=== PATIENT | male | born 1970 | race Caucasian/White ===

== ENCOUNTER → 2023-11-25 | Outpatient (CLI) | payer BC ==
--- NOTE | 2023-11-25 19:06 | CT ---
EXAMINATION TYPE: CT chest wo con DATE OF EXAM: 11/25/2023 COMPARISON: None HISTORY: asbestos exposure CT DLP: 952.6 mGycm, Automated exposure control for dose reduction was used. CONTRAST: None TECHNIQUE: Axial images were obtained at 1 mm thick sections at 10 mm intervals. This will limit po rtions of the examination which may not be visualized within the [id number]. Images were obtained in the prone and supine views. FINDINGS: Portion of the thyroid visualized is normal. There is an irregular 1.0 x 0.7 cm density within the posterior left apex. Workup for neoplasm is rec ommended. There is a 1.4 cm irregular density anterior right lung. Series 4 image 169. There is a 0.4 cm density within the posterior right lung base, Series 10 image 18. There is thickening along the right major fissure, example image series 4 image 115. This could be re lated to some atelectasis which appears to improve on the prone images. Perihilar thickening appears to be present with some calcifications within the right hilum. Scattered peripheral increased lung markings are present which are nonspecific. Pulmonary fibrosis is within the differential. No enlarged mediastinal or hilar adenopathy is evident. There is a 0.9 cm pretracheal lymph node. Th e ascending aorta diameter at the level of the main pulmonary artery is 3.7 cm. The main pulmonary a rtery diameter at the bifurcation is 3.[address] sections are obtained through the upper abdomen. Abdomen is essentially unremarkable. IMPRESSION: 1. There are at least couple of suspicious spiculated densities including the left apex and anterior right upper lung field. Additional workup for neoplasm is recommended. 2. Nonspecific increased lung markings present. Findings related to pulmonary fibrosis. 3. Some atelectatic changes present between prone and supine views
== END | disposition home or self-care (01) ==
LOC: RADCTMAIN 16:58
PROVIDERS: ATTEND Internal Medicine
DX: J98.4 Other disorders of lung (principal); J84.10 Pulmonary fibrosis, unspecified; J98.11 Atelectasis
CPT/HCPCS: 71250

== ENCOUNTER → 2023-12-18 | Outpatient (CLI) | payer BC ==
--- NOTE | 2023-12-19 02:39 | PE ---
EXAMINATION TYPE: PET CT fusion skull to thigh DATE OF EXAM: 12/18/2023 CLINICAL INDICATION:Male, 53 years old with history of R91.8 ABNORMAL IMAGE; TECHNIQUE: Following the intravenous administration of 10.64 mCi of F-18 FDG, whole body images are performed from the skull base to the midthigh. Images are reviewed on the computer in the coronal, axial, and sagittal planes. Reconstructed rotating images are created on independent workstation and reviewed on the computer. A non-contrast CT is performed in conjunction with the PET scan. Glucose level 147 mg/dL CT DLP: 484.29 mGycm, Automated exposure control for dose reduction was used. COMPARISON: CT 11/25/2023, PET/CT None, MRI: None FINDINGS: Mediastinal SUV mean is 2.2. Hepatic parenchyma SUV mean is 3.0. SKULL BASE AND NECK: No suspicious radiotracer activity. CHEST, MEDIASTINUM, AND HILAR REGION: Redemonstration of scattered reticular nodular regions throughout the lungs calcified granuloma withi n the medial aspect of the right upper lung. Linear thickening along the bilateral major pleura identified. The right and measures a maximum SUV o f 4.7. The left demonstrates a maximum SUV of 4.8. Right middle lobe irregular opacity redemonstrated measuring up to 1.3 cm with a maximum SUV of 3.8. Additional left apical 1.4 cm nodular opacity with a maximum SUV of 2.7. Additional peripheral scattered regions of mild FDG uptake. Right perihilar calcific lymph nodes without FDG radiotracer uptake. Subcarinal lymph node measuring 1.5 cm short axis with maximum SUV of 2.7. This is at background leve ls. Additional mildly prominent mediastinal lymph nodes without uptake above background levels. ABDOMEN AND PELVIS: No suspicious radiotracer activity. Physiologic uptake throughout the bowel. MUSCULOSKELETAL STRUCTURES: No suspicious radiotracer activity. OTHER CT: Bilateral aphakia. Bilateral carotid bulb calcifications. Moderate coronary artery calcific ations. Patulous right inguinal ring. Retropubic symphysis cartilaginous cyst. Measuring up to 1.6 cm . Non-FDG avid. IMPRESSION: Scattered regions of reticular nodular opacities throughout the lungs with linear thickening along th e bilateral major fissures. Corresponding only mild FDG uptake is identified within the lungs. 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 Infection an d metastasis are not excluded. Continue follow-up is recommended with CT chest in 3-6 months. No othe r suspicious focal uptake identified. [facility], , 12/19/2023 2:37 AM
== END | disposition home or self-care (01) ==
LOC: RADPETMAIN 15:10
PROVIDERS: ATTEND Internal Medicine
DX: R91.8 Other nonspecific abnormal finding of lung field (principal)
CPT/HCPCS: 78815